=== PATIENT | male | born 1950 | race Caucasian/White ===

== ENCOUNTER → 2016-07-20 | Outpatient (REF) | payer BC | END | disposition home or self-care (01) | LOC: M SFHCPLAZ 08:53 | PROVIDERS: ATTEND Family Medicine | DX: Z53.8 Procedure and treatment not carried out for other reasons (principal); Z13.220 Encounter for screening for lipoid disorders; Z13.1 Encounter for screening for diabetes mellitus ==

== ENCOUNTER → 2017-08-30 | Outpatient (REF) | payer BC ==
[2017-08-30 13:45] LABS: ANION GAP 6 MEQ/L (8-16); BLOOD UREA NITROGEN 19 MG/DL (7-18); CALCIUM LEVEL 8.9 MG/DL (8.8-10.2); CARBON DIOXIDE LEVEL 28 MEQ/L (21-32); CHLORIDE LEVEL 107 MEQ/L (98-107); CHOLESTEROL LEVEL 174 MG/DL (<200); CHOLESTEROL RISK RATIO 2.416 (<5); CREATININE FOR GFR 1.09 MG/DL (0.70-1.30); GLOMERULAR FILTRATION RATE > 60.0 (>49); GLUCOSE, FASTING 82 MG/DL (70-100); HDL CHOLESTEROL 72 MG/DL (>40); NON-HDL-C 102 MG/DL; SODIUM LEVEL 141 MEQ/L (136-145); TRIGLYCERIDES LEVEL 70 MG/DL (<150)
[2017-08-30 13:47] LABS: POTASSIUM SERUM 5.3 MEQ/L (3.5-5.1)
== END ==
LOC: M SFHCPLAZ 10:35
DX: Z13.1 Encounter for screening for diabetes mellitus (principal); Z13.220 Encounter for screening for lipoid disorders

== ENCOUNTER → 2017-09-13 | Outpatient (REF) | payer BC ==
[2017-09-13 14:08] LABS: ALBUMIN 3.4 GM/DL (3.2-5.2); ALKALINE PHOSPHATASE 63 U/L (45-117); ALT/SGPT 15 U/L (12-78); ANION GAP 5 MEQ/L (8-16); AST/SGOT 9 U/L (7-37); BILIRUBIN,TOTAL 0.5 MG/DL (0.2-1.0); BLOOD UREA NITROGEN 14 MG/DL (7-18); CALCIUM LEVEL 8.5 MG/DL (8.8-10.2); CARBON DIOXIDE LEVEL 28 MEQ/L (21-32); CHLORIDE LEVEL 109 MEQ/L (98-107); CREATININE FOR GFR 1.06 MG/DL (0.70-1.30); GLOMERULAR FILTRATION RATE > 60.0 (>49); GLUCOSE, FASTING 91 MG/DL (70-100); SODIUM LEVEL 142 MEQ/L (136-145); TOTAL PROTEIN 6.5 GM/DL (6.4-8.2)
== END ==
LOC: M SFHCPLAZ 09:57
DX: E78.2 Mixed hyperlipidemia (principal); E87.5 Hyperkalemia
CPT/HCPCS: 80053

== ENCOUNTER → 2018-02-15 | Outpatient (CLI) | payer BC | LOC: M RAD 12:31 | DX: R59.0 Localized enlarged lymph nodes (principal) | CPT/HCPCS: 76882 ==

== ENCOUNTER → 2018-03-11 | Outpatient (CLI) | payer BC ==
[2018-03-11 12:41] LABS: INR 1.01; PROTHROMBIN TIME 13.4 SECONDS (12.1-14.4)
[2018-03-11 12:42] LABS: PARTIAL THROMBOPLASTIN TIME 27.3 SECONDS (25.4-37.6)
== END ==
LOC: M LAB 11:45
DX: R59.1 Generalized enlarged lymph nodes (principal)
CPT/HCPCS: 85610

== ENCOUNTER → 2018-03-17 | Outpatient (CLI) | payer BC ==
[~2018-03-17] MED LIST: LIDOCAINE 1% MDV 20ML VIAL As Ordered
== END ==
LOC: M RADPRO 10:18
DX: C77.3 Secondary and unspecified malignant neoplasm of axilla and upper limb lymph nodes (principal); E78.00 Pure hypercholesterolemia, unspecified; Z79.899 Other long term (current) drug therapy; Z87.891 Personal history of nicotine dependence
CPT/HCPCS: 38505

== ENCOUNTER → 2018-03-25 | Outpatient (CLI) | payer BC ==
[2018-03-25 19:36] LABS: CREATININE FOR GFR 1.28 MG/DL (0.70-1.30); GLOMERULAR FILTRATION RATE 59.9 (>49)
[2018-03-25 19:36] LABS: BLOOD UREA NITROGEN 16 MG/DL (7-18)
== END ==
LOC: M LAB 16:27
DX: R59.0 Localized enlarged lymph nodes (principal); D49.0 Neoplasm of unspecified behavior of digestive system
CPT/HCPCS: 82565

== ENCOUNTER → 2018-03-28 | Outpatient (CLI) | payer BC ==
[~2018-03-28] MED LIST changes: +GASTROGRAFIN SOLUTION 30ML (Q9963) As Ordered; +ISOVUE-370 76% 100ML VIAL (Q9967) As Ordered; -LIDOCAINE 1% MDV 20ML VIAL As Ordered
== END ==
LOC: M RAD 15:33
DX: R59.0 Localized enlarged lymph nodes (principal); D49.0 Neoplasm of unspecified behavior of digestive system; N28.1 Cyst of kidney, acquired; R91.8 Other nonspecific abnormal finding of lung field
CPT/HCPCS: Q9963

== ENCOUNTER 2018-03-30 07:11 | Day surgery (SDC) | payer BC ==
[2018-03-30] MEDS: NS 1,000 ML IV (06:00)
[2018-03-30] MEDS ORDERED: PROPOFOL 200 MG/20 ML VIAL As Ordered ×2 (08:05→08:22)
[2018-03-30] MEDS ORDERED: LIDOCAINE 2% INJ 100 MG/5 ML SDV (FOR ANES.) As Ordered (08:05)
== END 2018-03-30 09:16 | disposition home or self-care (01) ==
LOC: M OPP 07:11
DX: D49.0 Neoplasm of unspecified behavior of digestive system (principal); R59.0 Localized enlarged lymph nodes; C79.9 Secondary malignant neoplasm of unspecified site; R49.0 Dysphonia; K64.1 Second degree hemorrhoids; K22.8 Other specified diseases of esophagus; E78.5 Hyperlipidemia, unspecified; Z87.891 Personal history of nicotine dependence; Z79.899 Other long term (current) drug therapy
CPT/HCPCS: 45378

== ENCOUNTER → 2018-04-19 | Outpatient (CLI) | payer BC, MEDICARE ==
[~2018-04-19] MED LIST changes: -GASTROGRAFIN SOLUTION 30ML (Q9963) As Ordered; -ISOVUE-370 76% 100ML VIAL (Q9967) As Ordered; +PROHANCE 279.3MG/ML 15ML VIAL (A9576) As Ordered
== END ==
LOC: M RAD 13:30
DX: D49.0 Neoplasm of unspecified behavior of digestive system (principal); K22.9 Disease of esophagus, unspecified; R59.0 Localized enlarged lymph nodes; N28.1 Cyst of kidney, acquired
CPT/HCPCS: A9576

== ENCOUNTER → 2018-05-13 | Outpatient (CLI) | payer BC, MEDICARE ==
[~2018-05-13] MED LIST changes: -PROHANCE 279.3MG/ML 15ML VIAL (A9576) As Ordered; +PROHANCE 279.3MG/ML 5ML VIAL (A9576) As Ordered
== END ==
LOC: M RAD 07:41
DX: C34.90 Malignant neoplasm of unspecified part of unspecified bronchus or lung (principal)
CPT/HCPCS: A9576

== ENCOUNTER → 2018-05-30 | Outpatient (CLI) | payer BC, MEDICARE | LOC: M ST 11:56 | DX: J38.01 Paralysis of vocal cords and larynx, unilateral (principal) | CPT/HCPCS: 74230 ==

== ENCOUNTER → 2018-08-23 | Outpatient (CLI) | payer BC, MEDICARE ==
[~2018-08-23] MED LIST changes: +ATOR1TAB21 PO; +DEXA4TA PO; +FOLI1TAB11 PO; +GASTROGRAFIN SOLUTION 30ML (Q9963) As Ordered ONE; +ISOVUE-370 76% 100ML VIAL (Q9967) As Ordered ONE; +ONDA8TAB8 PO; +PROC10TA4 PO; -PROHANCE 279.3MG/ML 5ML VIAL (A9576) As Ordered
--- NOTE | 2018-08-23 15:12 | REP ---
Clinical: Non-small cell lung cancer for restaging. Technique: Axial contrast enhanced images from the thoracic inlet to the upper abdomen using 100 ml Isovue 370 intravenous contrast material with coronal and sagittal re-formations. Comparison: 03/28/2018. Findings: Right upper lobe mass lesion appears relatively stable currently measuring approximately 12.5 x 9.2 mm maximal diameter. No further nodule or mass lesion identified. There is a subtle non solid area of ground-glass opacity in the left lower lobe measuring approximately 2.4 cm maximal diameter which is otherwise nonspecific but represents a new finding as compared to prior examination. No further consolidation or opacity. No effusion. No pneumothorax. No significant adenopathy identified. The mediastinum demonstrates relatively normal thoracic aorta, pulmonary vasculature, and heart/pericardium. No evidence for aortic aneurysm, and or dissection. No cardiomegaly or pericardial effusion. Surrounding musculoskeletal structures without focal osseous abnormality. Limited upper abdomen demonstrates normal bilateral adrenal glands. Impression: 1. Stable lesion in the right upper lobe. 2. New subtle area of ground-glass opacity in the left lower lobe measuring 2.4 cm. Finding is nonspecific based on appearance. Short-term follow-up may be warranted. Electronically Signed by Roc Vo MD 08/23/2018 03:03 P
--- NOTE | 2018-08-23 15:20 | REP ---
Clinical: Non-small cell lung cancer for restaging. Technique: Axial contrast enhanced images from the lung bases to the pubic symphysis using 100 ml Isovue 370 intravenous contrast material with coronal and sagittal re-formations. Comparison: 03/28/2018. Findings: Lung bases are relatively clear. Visualized heart and pericardium normal. Liver, spleen, pancreas, gallbladder, bilateral adrenal glands and kidneys are normal / stable. Small bilateral renal hypodensities remain stable and likely represent cysts. The enteric system is without obstruction or acute inflammatory process. Pelvis demonstrates normal bladder and age appropriate prostate/seminal vesicles. No ascites. No free air. No adenopathy. No solitary mass lesion. Atherosclerotic changes to the aorta and vasculature without aneurysm. Musculoskeletal structures are intact without focal osseous abnormality. Impression: 1. No acute abdominopelvic pathology appreciated. 2. Few scattered bilateral renal hypodensities remain stable and likely represent cysts. 3. No ascites, adenopathy, focal mass lesion, or inflammatory stranding. Electronically Signed by Roc Vo MD 08/23/2018 03:12 P
== END ==
LOC: M RAD 12:32
PROVIDERS: ATTEND Internal Medicine Medical Oncology
DX: C34.90 Malignant neoplasm of unspecified part of unspecified bronchus or lung (principal); N28.89 Other specified disorders of kidney and ureter; R91.8 Other nonspecific abnormal finding of lung field
CPT/HCPCS: 71260; 74177; Q9963; Q9967

== ENCOUNTER → 2018-11-17 | Outpatient (CLI) | payer BC, MEDICARE ==
[~2018-11-17] MED LIST changes: +B-12100T2 PO; +MULTCAP PO; +VITA100T59 PO
--- NOTE | 2018-11-17 11:11 | REP ---
Clinical: Non-small cell lung cancer for restaging. Technique: Axial contrast enhanced images from the lung bases to the pubic symphysis with coronal and sagittal re-formations using oral (per protocol) and 100 ml Isovue 370 intravenous contrast material. Delayed images of the abdomen obtained. Comparison: 08/23/2018. Findings: Lung bases are clear. Visualized heart and pericardium normal. Liver, spleen, pancreas, gallbladder, bilateral adrenal glands and kidneys are normal / stable. Renal hypodensities are unchanged and consistent with simple/complex cysts. The enteric system is without obstruction or acute inflammatory process. Normal terminal ileum and appendix identified in the right lower quadrant. Pelvis demonstrates normal bladder and age appropriate prostate/seminal vesicles. No intraperitoneal or retroperitoneal adenopathy. No free air. No ascites. Atherosclerotic changes to the aorta and iliac arteries noted without aneurysm or dissection. Musculoskeletal structures are intact and without focal osseous abnormality. Impression: No acute abdominopelvic pathology appreciated. No evidence for metastatic disease. Electronically Signed by Roc Vo MD 11/17/2018 11:02 A
--- NOTE | 2018-11-17 11:13 | REP ---
Clinical: Non small cell lung cancer for restaging. Technique: Axial contrast enhanced images from the thoracic inlet to the upper abdomen with coronal and sagittal re-formations using 100 ml Isovue 370 intravenous contrast material. Comparison: 08/23/2018. Findings: 12 mm right upper lobe lesion remains unchanged. Previously identified of eight non solid ground-glass density in the left lower lobe has resolved. No new acute area of consolidation, nodule or mass lesion appreciated. No pleural effusion. No pneumothorax. Tracheobronchial tree is patent. No significant axillary, hilar, or mediastinal adenopathy. Mediastinum demonstrates atherosclerotic changes to the thoracic aorta and coronary arteries without aortic aneurysm or dissection. No cardiomegaly or pericardial effusion. Surrounding musculoskeletal structures demonstrate age-related changes without focal osseous abnormality. Impression: 1. Stable 12 mm right upper lobe lesion unchanged compared to prior examination. 2. Previously identified non solid ground-glass opacity in the left lower lobe has resolved. 3. No new acute mediastinal or pleuroparenchymal process appreciated. Electronically Signed by Roc Vo MD 11/17/2018 11:05 A
== END ==
LOC: M RAD 08:29
PROVIDERS: ATTEND Internal Medicine Medical Oncology
DX: C34.11 Malignant neoplasm of upper lobe, right bronchus or lung (principal)
CPT/HCPCS: 71260; 74177; Q9963; Q9967

== ENCOUNTER → 2019-03-02 | Outpatient (CLI) | payer BC, MEDICARE ==
--- NOTE | 2019-03-02 14:04 | REP ---
Clinical: Lung cancer for restaging. Technique: Axial contrast enhanced images from the thoracic inlet to the upper abdomen with coronal and sagittal re-formations. Comparison: 11/17/2018. Findings: Noncalcified nodule in the right upper lobe with spiculated margins measures 12.2 mm maximal diameter and appears essentially unchanged. Underlying moderate chronic COPD/emphysematous changes with bronchiectasis noted. No new consolidation, nodule or mass lesion. No effusion. No pneumothorax. Stable lymph nodes in the mediastinum and right hilum again identified. Thoracic aorta demonstrates mild atherosclerotic changes without aneurysm or dissection. Heart and pericardium are normal. Surrounding musculoskeletal structures are intact. Impression: Stable 12 mm nodule in the right upper lobe. No new acute mediastinal or pleuroparenchymal process appreciated. Electronically Signed by Roc Vo MD 03/02/2019 01:54 P
--- NOTE | 2019-03-02 14:09 | REP ---
Clinical: Lung cancer for restaging. Technique: Axial contrast enhanced images from the lung bases to the pubic symphysis using oral (per protocol) and 100 ml Isovue 370 intravenous contrast material with coronal and sagittal re-formations as well as delayed images of the abdomen. Comparison: 11/17/2018. Findings: Liver, spleen, pancreas, gallbladder, and bilateral adrenal glands are normal. Kidneys demonstrate stable 1 cm proteinaceous right renal cyst and two simple left renal cysts measuring 9 and 15 mm each. The enteric system is without obstruction or acute inflammatory process. Pelvis demonstrates normal bladder and age appropriate prostate/seminal vesicles. No ascites. No free air. No adenopathy. Abdominal aorta without aneurysm or dissection. Musculoskeletal structures demonstrate age-related changes without focal osseous abnormality. Impression: Chronic stable changes. No acute abdominopelvic pathology appreciated. No evidence for metastatic disease. Electronically Signed by Roc Vo MD 03/02/2019 02:01 P
== END ==
LOC: M RAD 12:12
PROVIDERS: ATTEND Internal Medicine Medical Oncology
DX: C34.11 Malignant neoplasm of upper lobe, right bronchus or lung (principal)
CPT/HCPCS: 71260; 74177; Q9963; Q9967

== ENCOUNTER → 2019-05-02 | Outpatient (CLI) | payer BC, MEDICARE ==
[~2019-05-02] MED LIST changes: -GASTROGRAFIN SOLUTION 30ML (Q9963) As Ordered ONE; -ISOVUE-370 76% 100ML VIAL (Q9967) As Ordered ONE
--- NOTE | 2019-05-02 19:45 | REP ---
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 Peripancreatic, perihepatic adenopathy, axillary adenopathy, mediastinal adenopathy. Status post chemotherapy. Comparisons: No comparison PET-CT is available. Comparison CT study of the chest most recently March 02, 2019. TECHNIQUE: 61 minutes following the intravenous injection of a 8.86 mCi dose of F-18 FDG, three-dimensional PET scintigraphy is acquired from the skull base to the proximal thighs. Triplanar noncontrast CT scanning is acquired through the same anatomic range for attenuation correction, and image registration with scan parameters optimized to minimize radiation exposure to the patient. PET scintigraphy and CT datasets were fused and displayed on a workstation with multiplanar and projection display capability. PET/CT Findings: There is no abnormal pulmonary parenchymal hypermetabolic uptake. The 12 mm somewhat spiculated right upper lobe nodule does not show hypermetabolic uptake. Maximum standard uptake value here is 0.96. There is no abnormal hypermetabolic uptake in the mediastinum. No hilar hypermetabolic uptake is seen. No abnormal adrenal uptake is observed. No abnormal hypermetabolic uptake is seen in the abdomen or pelvis. Head and neck soft tissues show no suspicious uptake. No abnormal skeletal hypermetabolic uptake is seen. Impression: No abnormal hypermetabolic uptake is seen. Electronically Signed by Amol Vivar MD 05/02/2019 07:53 P
== END ==
LOC: M PLARAD 14:33
PROVIDERS: ATTEND Internal Medicine Medical Oncology
DX: C34.11 Malignant neoplasm of upper lobe, right bronchus or lung (principal)
CPT/HCPCS: 78815; A9552

== ENCOUNTER → 2019-09-01 | Outpatient (CLI) | payer BC ==
[~2019-09-01] MED LIST changes: +GASTROGRAFIN SOLUTION 30ML (Q9963) As Ordered ONE; +ISOVUE-370 76% 100ML VIAL (Q9967) As Ordered ONE
--- NOTE | 2019-09-01 17:42 | REPVR ---
PROCEDURE INFORMATION: Exam: CT Abdomen And Pelvis With Contrast Exam date and time: 09/01/2019 5:18 PM Age: 69 years old Clinical indication: Condition or disease; Cancer; Other: Lung; Additional info: Nsclc; Restaging TECHNIQUE: Imaging protocol: Computed tomography of the abdomen and pelvis with intravenous contrast. Radiation optimization: All CT scans at this facility use at least one of these dose optimization techniques: automated exposure control; mA and/or kV adjustment per patient size (includes targeted exams where dose is matched to clinical indication); or iterative reconstruction. Contrast material: ISOVUE 370; Contrast volume: 100 ml; Contrast route: IV; COMPARISON: CT ABD PELVIS WITH CONTRAST 03/02/2019 1:43 PM FINDINGS: Liver: There is a diffuse decrease in hepatic parenchymal density, consistent with steatosis. Gallbladder and bile ducts: Normal. No calcified stones. No ductal dilation. Pancreas: Normal. No ductal dilation. Spleen: Normal. No splenomegaly. Adrenals: Normal. No mass. Kidneys and ureters: Small simple renal cysts measure up to 14 mm in the left kidney. Stomach and bowel: Dilated fluid-filled loops of small bowel measuring up to 3.4 cm in the upper abdomen without significant delay of flow of contrast media into the colon. Finding is of uncertain significance. Appendix: No evidence of appendicitis. Intraperitoneal space: Unremarkable. No free air. No significant fluid collection. Vasculature: The aorta demonstrates mild atherosclerotic calcification. Lymph nodes: Unremarkable. No enlarged lymph nodes. Bladder: Unremarkable as visualized. Reproductive: Unremarkable as visualized. Bones/joints: Moderate central spinal stenosis L4-L5. Sacralization of the 1st sacral segment. Dextroscoliosis. Soft tissues: Unremarkable. IMPRESSION: 1. There is a diffuse decrease in hepatic parenchymal density, consistent with steatosis. 2. Small simple renal cysts measure up to 14 mm in the left kidney. 3. Dilated fluid-filled loops of small bowel measuring up to 3.4 cm in the upper abdomen without significant delay of flow of contrast media into the colon. Finding is of uncertain significance and can represent transient dilatation or and can be seen in association with an ileus. Clinical correlation suggested. COMMENTS: Consistent with the [employer]'s Incidental Findings Committee white paper (J Am Tiago Radiol 2018): Any incidental cystic renal lesion classified in this report as too small to characterize or simple appearing is likely a benign cyst. No follow-up imaging is recommended for these lesions per consensus recommendations based on imaging criteria. Electronically signed by: Amari Boyer On 09/01/2019 17:42:09 PM
--- NOTE | 2019-09-01 17:50 | REPVR ---
PROCEDURE INFORMATION: Exam: CT Chest With Contrast Exam date and time: 09/01/2019 5:18 PM Age: 69 years old Clinical indication: Condition or disease; Lung condition and disease; Cancer of the lung; Bilateral; Unspecified; Additional info: Nsclc; Restaging TECHNIQUE: Imaging protocol: Computed tomography of the chest with intravenous contrast. Radiation optimization: All CT scans at this facility use at least one of these dose optimization techniques: automated exposure control; mA and/or kV adjustment per patient size (includes targeted exams where dose is matched to clinical indication); or iterative reconstruction. Contrast material: ISOVUE 370; Contrast volume: 100 ml; Contrast route: IV; COMPARISON: CT Chest with contrast 03/02/2019 1:43 PM FINDINGS: Lungs: Mild changes of centrilobular emphysema demonstrated in the upper lung zones associated with paraseptal emphysema with numerous blebs in the apices. Well inflated lungs consistent with COPD. Pleural space: Spiculated solid nodule in the posterior aspect of the right upper lobe associated with pleural retraction and stranding extending to the lateral pleural surface. Finding worrisome for neoplasm although has not changed in comparison to the prior study of 03/02/2019. Continued interval follow-up suggested. Heart: Unremarkable. No cardiomegaly. No pericardial effusion. Aorta: Mildly dilated aortic root measures 3.5 cm at the mid sinuses of Valsalva level, finding unchanged in comparison to the prior study of 2018. Lymph nodes: Retrocaval pretracheal lymph node measures 9 mm. Findings stable in comparison to the prior study. Several subcentimeter lymph nodes demonstrated in the mediastinum also unchanged. Bones/joints: Unremarkable. No acute fracture. Soft tissues: Unremarkable. IMPRESSION: 1. Mild changes of centrilobular emphysema demonstrated in the upper lung zones associated with paraseptal emphysema with numerous blebs in the apices. 2. Spiculated solid nodule in the posterior aspect of the right upper lobe associated with pleural retraction and stranding extending to the lateral pleural surface. Finding worrisome for neoplasm although has not changed in comparison to the prior study of 03/02/2019. Highly suspicious nodule(s). Short interval follow-up and or Consider PET/CT, or tissue sampling to be considered.(Ramone et al., Fleischner Society, 2017) 3. Well inflated lungs consistent with COPD. 4. Stable mediastinal lymphadenopathy. Electronically signed by: Amari Boyer On 09/01/2019 17:49:38 PM
== END ==
LOC: M RAD 14:58
PROVIDERS: ATTEND Internal Medicine Medical Oncology
DX: R91.8 Other nonspecific abnormal finding of lung field (principal)
CPT/HCPCS: 71260; 74177; Q9963; Q9967

== ENCOUNTER → 2019-12-12 | Outpatient (CLI) | payer BC ==
[~2019-12-12] MED LIST changes: -GASTROGRAFIN SOLUTION 30ML (Q9963) As Ordered ONE; -ISOVUE-370 76% 100ML VIAL (Q9967) As Ordered ONE; +MULT-90 PO; +SUPETAB56 PO
[2019-12-12 15:40] LABS: BASO % 0.3 % (0.0-1.0); HEMATOCRIT 44.2 % (42.0-52.0); HEMOGLOBIN 14.6 g/dl (13.5-17.5); LYMPH # 0.5 10^3/uL (1.5-5.0); LYMPH % 6.5 % (24.0-44.0); MEAN CORPUSCULAR HEMOGLOBIN 31.7 pg (27.0-33.0); MEAN CORPUSCULAR VOLUME 95.9 fl (80.0-96.0); MONO % 0.6 % (0.0-5.0); NEUTROPHILS # 6.4 10^3/uL (1.5-8.5); NEUTROPHILS % 92.2 % (36.0-66.0); PLATELET COUNT, AUTOMATED 295 10^3/uL (150-450); RED BLOOD COUNT 4.61 10^6/uL (4.30-6.10); WHITE BLOOD COUNT 6.9 10^3/uL (4.0-10.0)
[2019-12-12 15:53] LABS: ALBUMIN 3.7 GM/DL (3.2-5.2); BILIRUBIN,TOTAL 0.4 MG/DL (0.2-1.0); CALCIUM LEVEL 9.4 MG/DL (8.8-10.2); CREATININE FOR GFR 1.46 MG/DL (0.70-1.30); FREE T4 1.25 NG/DL (0.76-1.46); GLOMERULAR FILTRATION RATE 51.1 (>49); POTASSIUM SERUM 5.1 MEQ/L (3.5-5.1); THYROID STIMULATING HORMONE 0.355 uIU/ML (0.358-3.740); TOTAL PROTEIN 6.8 GM/DL (6.4-8.2)
== END ==
LOC: M WUC 12:12
PROVIDERS: ATTEND Internal Medicine Medical Oncology
DX: C34.90 Malignant neoplasm of unspecified part of unspecified bronchus or lung (principal)

== ENCOUNTER → 2020-02-26 | Outpatient (CLI) | payer BC ==
[~2020-02-26] MED LIST changes: +GASTROGRAFIN SOLUTION 30ML (Q9963) As Ordered ONE; +ISOVUE-370 76% 100ML VIAL As Ordered ONE; -MULT-90 PO
--- NOTE | 2020-03-25 15:35 | REP ---
CONTRAST ENHANCED CHEST CT CLINICAL: Lung cancer follow-up. TECHNIQUE: Axial contrast enhanced images from the thoracic inlet to the upper abdomen with coronal and sagittal reformations using 100 mL Isovue-370 intravenous contrast material. COMPARISON: Multiple prior examinations dating through 03/02/2019. FINDINGS: Advanced emphysematous changes are again noted along with scattered scarring. A 12-mm spiculated nodule in the periphery of the right upper lobe (Image 30) remains stable. Previous PET CT dated 05/02/2019, demonstrated no significant hypermetabolic activity to the nodule. Biapical scarring noted. No further consolidation, new nodule, or mass. No effusion. No pneumothorax. Tracheobronchial tree is patent. No obvious adenopathy. Further evaluation of the mediastinum demonstrates atherosclerotic changes to the thoracic aorta and coronary arteries. No evidence for aortic aneurysm or dissection. No cardiomegaly or pericardial effusion. Pulmonary vasculature appears normal. Surrounding musculoskeletal structures are intact. IMPRESSION: * Stable 12-mm spiculated nodule in the periphery of the right upper lobe unchanged and without hypermetabolic activity on prior PET CT. * Diffuse emphysematous changes with primarily apical and scattered basilar scarring. * No new acute mediastinum or pleural parenchymal process. MTDD
--- NOTE | 2020-03-25 15:38 | REP ---
CONTRAST ENHANCED CT OF THE ABDOMEN AND PELVIS CLINICAL: History of lung cancer for follow up. TECHNIQUE: Axial contrast enhanced images from the lung bases to the pubic symphysis using oral (per protocol) and 100 cc Isovue-370 intravenous contrast material with coronal and sagittal reformations. COMPARISON: Multiple examinations dating through 08/23/2018. FINDINGS: Liver, spleen, pancreas, gallbladder, bilateral adrenal glands, and kidneys are normal/stable. Nine millimeter hypodense lesion along the lateral aspect of the right kidney (image 61) remains stable and consistent with complex cyst. The enteric system is without obstruction or acute inflammatory process. Normal terminal ileum and appendix are identified in the right lower quadrant. Scattered sigmoid diverticulosis noted without acute diverticulitis. Pelvis demonstrates normal bladder and age-appropriate prostate/seminal vesicles. No free air. No free fluid. No significant adenopathy. Abdominal aorta without aneurysm or dissection. Musculoskeletal structures without acute osseous abnormality. IMPRESSION: * No acute abdominopelvic pathology appreciated. * Simple and complex stable bilateral renal cysts. * Scattered sigmoid diverticula without acute diverticulitis. MTDD
== END ==
LOC: M RAD 13:01
PROVIDERS: ATTEND Internal Medicine Medical Oncology
DX: C34.90 Malignant neoplasm of unspecified part of unspecified bronchus or lung (principal)
CPT/HCPCS: 71260; 74177; Q9963; Q9967

== ENCOUNTER → 2020-04-09 | Outpatient (CLI) | payer BC ==
[~2020-04-09] MED LIST changes: -GASTROGRAFIN SOLUTION 30ML (Q9963) As Ordered ONE; -ISOVUE-370 76% 100ML VIAL As Ordered ONE
--- NOTE | 2020-04-09 11:18 | RADONC.CN ---
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 He was diagnosed in 2018 via core biopsy of a large left axillary node, analysis in house suggested a GI origin, review at [facility] was felt more consistent with lung primary PD-L1 was low. His purported lung primary tumor is a relatively small RUL nodule with associated typical pattern mediastinal adenopathy. He was managed initially with chemo-immunotherapy and had an immediate and drastic response in all the of the callie basins. He was subsequently maintained on single agent atezolizumab and has had no recurrence or progression on scans most recently in January 2020. He does however have a persistent RUL nodule most recently 1.2 cm in greatest extent for which I am evaluating him today for consideration of SBRT. Diagnosis/Treatment History Oncologic History Per Dr. Melendez's recent note Stage IV, [id number], PD-L1 low adenocarcinoma of lung diagnosed March 2018 presenting with right upper lobe 2 cm mass, mediastinal, pancreatic, perihepatic and axillary lymphadenopathy. Now in metabolic CR on maintenance atezolizumab following initial [place] based chemoimmunotherapy. Persistent 12 mm non- hypermetabolic right upper lobe nodule on 05/02/2019 PET. ECOG performance status 0. CURRENT THERAPY: Atezolizumab maintenance, day 1 cycle 1 09/20/2018 SURVEILLANCE: CT chest, abdomen and pelvis 09/01/2019 stable, small persistent right lung nodule. No change. CT scan 02/26/2020 also showed stable right upper lung nodule. Interval History Feels well. Works at a [employer]. No longer smokes. Has no pain. Mild chronic cough. No hemoptysis. No weight loss, fatigue, or fevers. Energy levels good. Past Medical History: No significant PMH Past Surgical History: No significant PSH Family History: No family history of cancer Social History: Former smoker quit 2018 (on diagnosis) has 54+ pk year history Allergies / Meds Allergies: Coded Allergies: No Known Allergies (Unverified , 03/23/18) Home Meds Active Scripts Folic Acid (Folic Acid) 1 Mg Tab, 1 TAB PO DAILY for 30 Days, #30 TAB 3 Refills Prov:Jessica Ho MD 09/11/19 Dexamethasone (Dexamethasone) 4 Mg Tab, 4 MG PO BID for 10 Days, #12 TAB 6 Refills TAKE 1 TAB TWICE A DAY FOR 3 DAYS BEGINNING THE DAY BEFORE CHEMOTHERAPY TREATMENT Prov:Jessica Ho MD 05/08/19 Prochlorperazine Maleate (Prochlorperazine Maleate) 10 Mg Tab, 10 MG PO Q8HP PRN for NAUSEA OR VOMITING for 15 Days, #30 TAB 3 Refills Prov:Jessica Ho MD 05/09/18 Ondansetron (Ondansetron Odt) 8 Mg Tab, 8 MG PO Q6H for nausea/vomiting for 3 Days, #30 TAB 3 Refills Prov:Jessica Ho MD 05/09/18 Reported Medications Folic Acid/Vit B Complex and C (Super B Complex Tablet) 400 Mcg Tablet, 1 TAB PO, TAB 03/13/20 Multivitamin (Multivitamins) 1 Each Capsule, 1 CAP PO DAILY for 30 Days, #30 CAP 10/11/18 Ascorbic Acid (Vitamin C) 100 Mg Tablet, 1 TAB PO DAILY for 30 Days, #30 TAB 10/11/18 Cyanocobalamin (Vitamin B-12) (Vitamin B-12) 100 Mcg Tablet, 1 TAB PO DAILY for 30 Days, #30 TAB 10/11/18 Review of Systems General: Reports: Normal Appetite Constitutional: Denies: Chills, Fever, Night Sweats Eyes: Denies: Pain, Vision change HEENT: Denies: Head Aches, Dysphagia, Sore Throat Skin: Denies: Rash, Lesions, Bruising Pulmonary: Reports: Cough; Denies: Dyspnea Cardiovascular: Denies: Chest Pain, Palpitations, Edema Gastrointestinal: Denies: Nausea, Vomiting, Abdominal Pain, Diarrhea Genitourinary: Denies: Dysuria, Frequency, Incontinence Hematologic: Denies: Bruising, Petecchia, Enlarged Lymph Nodes Musculoskeletal: Denies: Neck pain, Back pain Neurological: Denies: Weakness, Numbness, Incoordination Psych: Reports: Mood Normal; Denies: Memory Issues, Thoughts of Self Harm Vital Signs Wt 151 T 98 P 76 RR 20 BP 134/78 O2 98% Pain 0 Fatigue 0 General Exam: Positive: Alert, Cooperative, No Acute Distress Eye Exam: Positive: PERRLA, EOMI ENT EXAM: Positive: Atraumatic, Pharynx Normal, Tongue Midline Neck Exam: Positive: Supple; Negative: Thyromegaly, Lymphadenopathy Chest Exam: Positive: Clear to auscultation, Normal air movement; Negative: Rales, Rhonchi, Wheezing Heart Exam: Positive: Rate Normal, Regular Rhythm Abdomen Exam: Positive: Normal bowel sounds, Soft; Negative: Tenderness, Hepatospenomegaly Extremity Exam: Positive: Normal pulses; Negative: Edema Skin Exam: Positive: Nl turgor and temperature; Negative: Rash Neuro Exam: Positive: Normal Gait, Normal Speech, Cranial Nerves 3-12 NL Psych Exam: Positive: Mental status NL, Mood NL; Negative: Anxiety Diagnostic and Laboratory Diagnostic Review Radiologic images, relevant labs and pathology reports were personally reviewed and discussed with Mr. Reyes. Assessment and Plan Impression Mr. 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 This is an atypical presentation for mNSCLC. He has had a fantastic and equally atypical response to chemo-immunotherapy, which has been sustained on single agent atezolizumab. He is now 2 years from initial diagnosis with no evidence of any residual disease except for a 1.2 cm RUL nodule. Stage [id number] Stage IVB NSCLC Performance Status ECOG 0 Plan We had an extensive discussion with Mr. Reyes regarding the diagnosis at hand and available therapeutic options. Dr. Melendez asked me to consider SBRT to the lesion with the intent of facilitating a trial off immunotherapy. As the lesion is not growing, or metabolically active on last PET-CT from 2019, I do not think this is warranted as the benefit in this case is unclear to me. I discussed with the patient that SBRT has a growing role in the setting of oligoprogression: To maintain a patient on systemic therapy, that with the exception of an isolated few sites, is holding all others at bay. In his case as there is no evidence of any progression, this paradigm does not apply. Moreover, the patient expressed unease with the idea of suspending immunotherapy even temporarily (for fear of relapse). I think he should discuss this further with Dr. Melendez. He is also scheduled to see Dr. Hurtado this week. Dr. Hurtado is better suited to discuss the pros and cons of sampling the lesion (either via limited resection, or biopsy) with the patient. My oncologic opinion is that although it would be interesting to know whether there is viable tumor in the lesion, and to characterize it better molecularly (given the strange overall presentation of this case and the differing opinions of pathologists here and at [facility]), that it probably makes little difference with respect to Mr. Reyes's prognosis whether the lesion is definitively managed, or not, prior to trial off of immunotherapy. If the patient stops atezolizumab and has isolated progression in this RUL site only, at some future timepoint, then I can salvage with SBRT with >90% local control probability. Or Dr. Hurtado could wedge it out then. Conversely, if immunotherapy is stopped and the patient relapses at other sites, then what was the advantage of managing the RUL lesion definitively prior to stopping immunotherapy? If however sampling the RUL lesion now would truly tip Dr. Melendez one way or another with respect to continuing or discontinuing systemic therapy, then it is worthwhile to pursue, and ideally, a wedge resection would provide the ultimate tissue sample, and also constitute definitive management of the lesion. On a brief review of the literature there is little concrete data to inform this decision. If Mr. Reyes has limited metastatic progression either on, or off, systemic therapy in the future I would be happy to revisit the role of RT in his case. We instructed the patient that if there were any questions,concerns or changes in clinical status in the interim to contact us. He intends to visit with Dr. Hurtado and [place] back with Dr. Melendez to make his final decision. Recommendations No role for SBRT at this time Consider sampling the lesion if it the recommendation to continue or discontinue immunotherapy hinges upon the presence, or absence, of viable tumor in it If there is limited or symptomatic progression in the future I would be happy to re-evaluate role of RT in his care Follow up as needed for now STEFFEN ARIAS MD Apr 09, 2020 11:17
== END ==
LOC: M ONCR 09:05
PROVIDERS: ATTEND General Practice
DX: C34.11 Malignant neoplasm of upper lobe, right bronchus or lung (principal); Z92.21 Personal history of antineoplastic chemotherapy

== ENCOUNTER → 2020-04-30 | Outpatient (CLI) | payer BC ==
--- NOTE | 2020-04-30 16:22 | REP ---
INDICATION: NECK LUMP MAIN REG. COMPARISON: CT neck 03/28/2018 TECHNIQUE: Soft tissue ultrasound scanning in the area of aborted palpable finding. FINDINGS: Soft tissue scanning of the neck shows echogenic calcification in the a tracheal wall as seen on CT along its cartilaginous rings. This is in the direct area of the patient's tenderness and palpable lump. I do not see a discrete mass or nodule, adenopathy or other significant finding on this examination. IMPRESSION: 1. No sonographically visible mass or abnormality. The area of the reported palpable finding in tenderness only the trachea and echogenic cartilage ring calcifications noted. This is as seen on CT neck 03/28/2018, which also had no mass or adenopathy. <Electronically signed by Reginald Bennett > 04/30/20 [id number]
== END ==
LOC: M RAD 13:35
PROVIDERS: ATTEND Internal Medicine Medical Oncology
DX: R22.1 Localized swelling, mass and lump, neck (principal)

== ENCOUNTER → 2020-05-07 | Outpatient (CLI) | payer BC ==
--- NOTE | 2020-05-07 18:50 | REP ---
INDICATION: RESTAGING LUNG CANCER. COMPARISON: Comparison chest CT study February 26, 2020. Comparison PET-CT May 02, 2019.. TECHNIQUE: Forty-six minutes following the intravenous injection of a 7.41 mCi dose of F-18 FDG, three-dimensional PET scintigraphy is acquired from the skull base to the proximal thighs. Triplanar noncontrast CT scanning is acquired through the same anatomic range for attenuation correction, and image registration with scan parameters optimized to minimize radiation exposure to the patient. PET scintigraphy and CT datasets were fused and displayed on a workstation with multiplanar and projection display capability. FINDINGS: There is no abnormal hypermetabolic uptake in the neck soft tissues. Vascular calcifications noted. There is osteoarthritis facet uptake mild in degree in the right side of the cervical spine. There is no abnormal hilar or mediastinal callie uptake in the chest. There is no discernible FDG accumulation in the residual spiculated 12 mm nodule in the right upper lobe. Maximum standard uptake value 1.01. No abnormal pulmonary parenchymal hypermetabolic uptake is seen elsewhere. In the abdomen and pelvis, there is normal hepatic, splenic, gastrointestinal, and genitourinary FDG accumulation. No abnormal abdominal or pelvic hypermetabolic uptake is appreciated. IMPRESSION: Negative PET scintigraphy. No hypermetabolic uptake in the right upper lobe nodule or elsewhere. <Electronically signed by Lele Vivar > 05/07/20 [id number]
== END ==
LOC: M PLARAD 14:22
PROVIDERS: ATTEND Internal Medicine Medical Oncology
DX: C34.90 Malignant neoplasm of unspecified part of unspecified bronchus or lung (principal)

== ENCOUNTER → 2020-05-10 | Outpatient (REF) | payer BC | LOC: M LAB REF 13:16 | PROVIDERS: ATTEND Thoracic Surgery (Cardiothoracic Vascular Surgery) | DX: C34.11 Malignant neoplasm of upper lobe, right bronchus or lung (principal); C78.01 Secondary malignant neoplasm of right lung ==

== ENCOUNTER → 2020-09-25 | Outpatient (CLI) | payer BC ==
[~2020-09-25] MED LIST changes: +MULT-90 PO
--- NOTE | 2020-09-25 10:44 | REP ---
INDICATION: MALIGNANT NEOPLASM RUL,SECONDARY MALIG RT LUNG COMPARISON: 02/26/2020 TECHNIQUE: Axial noncontrast images from the thoracic inlet to the upper abdomen with coronal and sagittal reformations. This CT examination was performed using the following dose reduction techniques: Automated exposure control, adjustment of mA and/or kv according to the patient's size, and use of iterative reconstruction technique. FINDINGS: 12 mm spiculated lesion in the right upper lobe remains essentially stable, and most recent PET-CT dated 05/07/2020 demonstrated no associated hypermetabolic activity. There is a small 4 mm new noncalcified nodule in the posterior periphery of the right lower lobe (series 201; image 73) which represents a new finding as compared to 02/26/2020. Underlying chronic emphysematous changes with scattered scarring and bronchiectasis remain unchanged. No acute consolidation, effusion, or pneumothorax. No obvious adenopathy. Further evaluation of the mediastinum demonstrates stable atherosclerotic changes to the thoracic aorta and coronary arteries without aortic aneurysm or cardiomegaly. No pericardial effusion. IMPRESSION: 1. New 4 mm noncalcified nodule in the right lower lobe. Short-term follow-up examination is recommended. 2. Stable right upper lobe lesion and chronic emphysematous changes. <Electronically signed by Roc Vo > 09/25/20 [id number]
== END ==
LOC: M RAD 08:33
PROVIDERS: ATTEND Thoracic Surgery (Cardiothoracic Vascular Surgery)
DX: C78.01 Secondary malignant neoplasm of right lung (principal); C34.11 Malignant neoplasm of upper lobe, right bronchus or lung

== ENCOUNTER → 2021-01-07 | Outpatient (CLI) | payer BC ==
[~2021-01-07] MED LIST changes: +COVI30VI IM; +GASTROGRAFIN SOLUTION 30ML (Q9963) As Ordered ONE; +ISOVUE-370 76% 100ML VIAL As Ordered ONE; +MAGN400C PO; -PROC10TA4 PO; +PROC10TA5 PO; +TRIA1CR80 TOP
== END ==
LOC: M RAD 09:54
PROVIDERS: ATTEND Internal Medicine Medical Oncology
DX: C34.90 Malignant neoplasm of unspecified part of unspecified bronchus or lung (principal)

== ENCOUNTER → 2021-07-14 | Outpatient (CLI) | payer BC ==
[~2021-07-14] MED LIST changes: -TRIA1CR80 TOP
== END ==
LOC: M RAD 11:59
PROVIDERS: ATTEND Internal Medicine Medical Oncology
DX: R93.5 Abnormal findings on diagnostic imaging of other abdominal regions, including retroperitoneum (principal); C34.90 Malignant neoplasm of unspecified part of unspecified bronchus or lung
CPT/HCPCS: 71260; 74177; Q9963; Q9967

== ENCOUNTER → 2021-08-26 | Outpatient (CLI) | payer BC ==
[~2021-08-26] MED LIST changes: -GASTROGRAFIN SOLUTION 30ML (Q9963) As Ordered ONE; -ISOVUE-370 76% 100ML VIAL As Ordered ONE; +PROHANCE 279.3MG/ML 15ML VIAL As Ordered ONE; +TRIA1CR80 TOP
== END ==
LOC: M RAD 12:34
PROVIDERS: ATTEND Urology
DX: N28.1 Cyst of kidney, acquired (principal)

== ENCOUNTER → 2022-03-20 | Outpatient (CLI) | payer BC ==
[~2022-03-20] MED LIST changes: +GASTROGRAFIN SOLUTION 30ML (Q9963) As Ordered ONE; +ISOVUE-370 76% 100ML VIAL As Ordered ONE; -PROHANCE 279.3MG/ML 15ML VIAL As Ordered ONE; +TRIA1OI80 TOP
== END ==
LOC: M RAD 13:26
PROVIDERS: ATTEND Internal Medicine Medical Oncology
DX: C34.90 Malignant neoplasm of unspecified part of unspecified bronchus or lung (principal)

== ENCOUNTER → 2022-07-30 | Outpatient (CLI) | payer MEDICARE ==
[~2022-07-30] MED LIST changes: -GASTROGRAFIN SOLUTION 30ML (Q9963) As Ordered ONE; +GASTROGRAFIN SOLUTION 30ML As Ordered ONE
== END ==
LOC: M RAD 13:38
PROVIDERS: ATTEND Nurse Practitioner
DX: C34.90 Malignant neoplasm of unspecified part of unspecified bronchus or lung (principal)
CPT/HCPCS: 71260; 74177; Q9963; Q9967

== ENCOUNTER → 2022-12-07 | Outpatient (CLI) | payer BC, MEDICARE ==
[~2022-12-07] MED LIST changes: +PRED10TA2 PO
== END ==
LOC: M RAD 11:24
PROVIDERS: ATTEND Nurse Practitioner
DX: C34.90 Malignant neoplasm of unspecified part of unspecified bronchus or lung (principal)
CPT/HCPCS: 71260; 74177; Q9963; Q9967

== ENCOUNTER → 2023-03-08 | Outpatient (CLI) | payer BC, MEDICARE ==
[~2023-03-08] MED LIST changes: -GASTROGRAFIN SOLUTION 30ML As Ordered ONE
== END ==
LOC: M RAD 11:17
PROVIDERS: ATTEND Nurse Practitioner
DX: C34.90 Malignant neoplasm of unspecified part of unspecified bronchus or lung (principal)
CPT/HCPCS: 71260; Q9967

== ENCOUNTER → 2023-07-02 | Outpatient (CLI) | payer BC, MEDICARE ==
[~2023-07-02] MED LIST changes: -ISOVUE-370 76% 100ML VIAL As Ordered ONE
== END ==
LOC: M EKG 12:54
PROVIDERS: ATTEND Nurse Practitioner
DX: Z01.818 Encounter for other preprocedural examination (principal); C34.90 Malignant neoplasm of unspecified part of unspecified bronchus or lung

== ENCOUNTER → 2023-07-21 | Outpatient (CLI) | payer BC, MEDICARE ==
[~2023-07-21] MED LIST changes: +GASTROGRAFIN SOLUTION 30ML ONE; +ISOVUE-370 76% 100ML VIAL ONE
== END ==
LOC: M PLAIMG 09:55
PROVIDERS: ATTEND Nurse Practitioner
DX: C34.90 Malignant neoplasm of unspecified part of unspecified bronchus or lung (principal)
CPT/HCPCS: 71260; 74177; Q9963; Q9967

== ENCOUNTER → 2023-08-16 | Outpatient (CLI) | payer MEDICARE ==
[~2023-08-16] MED LIST changes: -GASTROGRAFIN SOLUTION 30ML ONE; -ISOVUE-370 76% 100ML VIAL ONE
== END ==
LOC: M PLARAD 13:01
PROVIDERS: ATTEND Nurse Practitioner
DX: C34.11 Malignant neoplasm of upper lobe, right bronchus or lung (principal)
CPT/HCPCS: 78815; A9552

== ENCOUNTER → 2023-09-10 | Outpatient (CLI) | payer MEDICARE ==
[2023-09-10 15:50] LABS: BASO % 0.3 % (0.0-1.0); EOS # 0.2 10^3/uL (0.0-0.5); EOS % 2.9 % (0.0-3.0); HEMATOCRIT 42.3 % (42.0-52.0); HEMOGLOBIN 14.1 g/dl (13.5-17.5); LYMPH # 1.7 10^3/uL (1.5-5.0); LYMPH % 23.8 % (24.0-44.0); MEAN CORPUSCULAR HEMOGLOBIN 30.3 pg (27.0-33.0); MEAN CORPUSCULAR HGB CONC 33.3 g/dl (32.0-36.5); MONO # 0.5 10^3/uL (0.0-0.8); MONO % 7.1 % (2.0-8.0); NEUTROPHILS # 4.6 10^3/uL (1.5-8.5); NEUTROPHILS % 65.6 % (36.0-66.0); PLATELET COUNT, AUTOMATED 273 10^3/uL (150-450); RED BLOOD COUNT 4.65 10^6/uL (4.30-6.10); WHITE BLOOD COUNT 6.9 10^3/uL (4.0-10.0)
[2023-09-10 15:58] LABS: INR 1.04; PROTHROMBIN TIME 13.3 SECONDS (12.5-14.5)
== END ==
LOC: M LAB 14:40
PROVIDERS: ATTEND Internal Medicine Critical Care Medicine
DX: R91.8 Other nonspecific abnormal finding of lung field (principal); Z79.01 Long term (current) use of anticoagulants

== ENCOUNTER 2023-09-15 07:15 | Day surgery (SDC) | payer BC, MEDICARE ==
[~2023-09-15] VITALS: Ht 182.9 cm; Wt 68.9 kg
[~2023-09-15 07:15] MED LIST changes: +EPINEPHrine 1MG/10ML SYRINGE 1.5IN As Ordered ONE; +THROMBIN 5,000 UNITS VIAL As Ordered ONE
[2023-09-15] MEDS ORDERED: LR 1,000 ML IV SCH ×2 (07:50→10:00)
[2023-09-15] MEDS: ALBUTEROL SULFATE 2.5MG/0.5ML INH NEB SOLN INH ONE (08:45)
[2023-09-15] MEDS: LIDOCAINE PRES-FREE 2% 10ML AMP INH ONE (08:45)
[2023-09-15] MEDS ORDERED: ONDANSETRON 4MG 2ML VIAL As Ordered ONE (08:59)
[2023-09-15] MEDS ORDERED: ACETAMINOPHEN 1000MG 100ML IV BAG As Ordered ONE (08:59)
[2023-09-15] MEDS ORDERED: LIDOCAINE 2% 100MG/5ML SDV (FOR ANES.) As Ordered ONE (09:00)
[2023-09-15] MEDS ORDERED: propofoL 200 MG/20 ML VIAL As Ordered ONE (09:00)
[2023-09-15] MEDS ORDERED: SUGAMMADEX SODIUM 500 MG/5 ML VIAL (BRIDION) As Ordered ONE (09:00)
[2023-09-15] MEDS ORDERED: ROCURONIUM BROMIDE 50MG/5ML VIAL As Ordered ONE (09:00)
[2023-09-15] MEDS ORDERED: fentaNYL 100 MCG/2 ML INJECTION As Ordered ONE (09:02)
[2023-09-15] MEDS ORDERED: MIDAZOLAM INJ 2MG/2ML VIAL As Ordered ONE (09:03)
[2023-09-15] MEDS: CETACAINE SPRAY 5GM As Ordered ONE (09:35)
[2023-09-15] MEDS ORDERED: HYDROMORPHONE HCL 0.5 MG/ 0.5 ML SYRINGE IV PRN (10:00)
[2023-09-15] MEDS ORDERED: fentaNYL 100 MCG/2 ML INJECTION IV PRN (10:00)
[2023-09-15] MEDS ORDERED: ONDANSETRON 4MG 2ML VIAL IV PRN (10:00)
[2023-09-15] MEDS ORDERED: oxyCODONE 5MG TAB PO PRN (10:00)
[2023-09-15 11:11] VITALS: BP 131/63; TEMP 97.4; O2SAT 92
== END 2023-09-15 11:20 | disposition home or self-care (01) ==
LOC: M SDC 07:15
PROVIDERS: ATTEND Internal Medicine Critical Care Medicine
DX: R59.0 Localized enlarged lymph nodes (principal); Z87.891 Personal history of nicotine dependence
CPT/HCPCS: 31652; 88173; 88305; J0131; J1100; J2250; J2405; J3010

== ENCOUNTER → 2023-10-05 | Outpatient (CLI) | payer MEDICARE ==
[~2023-10-05] MED LIST changes: -EPINEPHrine 1MG/10ML SYRINGE 1.5IN As Ordered ONE; +HOME MED LIST COMPLETE! XX SCH; +LIDOCAINE 1% MDV 20ML VIAL As Ordered ONE; +MIDAZOLAM INJ 2MG/2ML VIAL As Ordered ONE; -THROMBIN 5,000 UNITS VIAL As Ordered ONE; +fentaNYL 100 MCG/2 ML INJECTION As Ordered ONE
[2023-10-05 07:55] VITALS: TEMP 97.8
[2023-10-05 11:00] VITALS: BP 123/66; O2SAT 95
== END ==
LOC: M IRPRO 07:48
PROVIDERS: ATTEND Internal Medicine Critical Care Medicine
DX: R91.8 Other nonspecific abnormal finding of lung field (principal)
CPT/HCPCS: 32408; 88305; J2250; J3010

== ENCOUNTER → 2024-01-13 | Outpatient (CLI) | payer BC, MEDICARE ==
[~2024-01-13] MED LIST changes: -HOME MED LIST COMPLETE! XX SCH; +ISOVUE-370 76% 100ML VIAL As Ordered ONE; -LIDOCAINE 1% MDV 20ML VIAL As Ordered ONE; -MIDAZOLAM INJ 2MG/2ML VIAL As Ordered ONE; +ONDA-284 PO; -ONDA8TAB8 PO; -fentaNYL 100 MCG/2 ML INJECTION As Ordered ONE
== END ==
LOC: M RAD 13:58
PROVIDERS: ATTEND Internal Medicine Medical Oncology
DX: C34.30 Malignant neoplasm of lower lobe, unspecified bronchus or lung (principal); J44.9 Chronic obstructive pulmonary disease, unspecified
CPT/HCPCS: 71260; Q9967